=== PATIENT | female | born 1995 | race Caucasian/White ===

== ENCOUNTER 2021-05-28 08:33 | Outpatient (REF) | payer OTHER, SELFPAY ==
--- NOTE | 2021-05-28 09:19 | MHC.AU.ANR ---
Adult Audiological Evaluation Date of Visit: 05/28/21 Reason for Appointment: Audiological evaluation to monitor the status of Ms. Heath's hearing loss. She states that she has has hearing loss in the left ear since high school and has used a hearing aid in the left ear for the past ~8 years. She notes that the hearing aid was recently lost in a move and she is interested in pursuing a new one. She notes that she had PE tubes in high school. Upon getting her second set, they believe the previous tube had fallen into the middle-ear space and believe this is the cause of her hearing loss. Ms. Heath denies any concerns for her right ear at this time. She notes that she's had difficulties following conversations now that she doesn't have a hearing aid. 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 Does patient feel they have a hearing loss?: Yes If Yes, Which Ear?: Left Ear When Was Hearing Difficulty First Noticed?: ~8-10 years ago Has hearing been tested previously?: Yes Previous Hearing Test Results: [facility], records not available for review at this time. Hearing Handicap Inventory: HHIE SCORE: 26 Based on HHIE score, patient has: Severe perceived hearing handicap Ear History: Family History of Hearing Loss?: Yes: Grandparents Ear Infections in Childhood: Both Ears Previous Ear Surgery: Both ears, two sets of PE tubes in high school Bothersome Tinnitus/Ringing/Noises in Ears: Both Ears Blocked/Full Sensation in Ear(s): Both Ears Medical History: Medical History: Blood Disorders, Headache Medical History (Other): Hernia repair, tonsillectomy Allergies: Amoxicillin, penicillin, deena Medication List: Ibuprofen PRN, Zofran 25 mg daily, Zyrtec daily Otoscopy: Right Ear: Occluding cerumen removed successfully with a lighted curette Left Ear: Partially occluding cerumen, removed with lighted curette, still some deep Tympanometry: Tympanometry performed due to: History of middle ear dysfunction Right Ear: Normal Middle Ear System (Type A) Left Ear: Reduced Middle Ear Compliance (Type As) Hearing Evaluation: Transducer(s) Used: Insert Earphones, Bone Conduction Method: Conventional Audiometry Stimuli Used: Pure Tones Right Ear: Description of Hearing: Normal hearing from 250-8000 Hz. Left Ear: Description of Hearing: Mild conductive hearing loss from 250-1500 Hz, rising to normal hearing from 7247-5063 Hz. Air-bone gaps of 10-25 dBHL from 500-1500 Hz. Speech Recognition Threshold (SRT): Method Used: Monitored Live Voice Stimuli Used: Spondee Words Right Ear: 20 dBHL Left Ear: 25 dBHL Word Discrimination: Method: Recorded Lists Word Lists Used: NU-6 Right Ear: 100% at 60 dBHL Left Ear: 96% at 65 dBHL Recommendations: Audiological re-evaluation in one year. Hearing use in the left ear is recommended. Discussed hearing aid options with Ms. Heath. She is intersted in an Oticon More miniRITE-R hearing aid for the left ear. She will be contacting he [place] [employer] to determine her eligibility. Diagnosis: Primary Diagnosis: H90.12 ConductiveHL, Unilateral Left Ear, W/Unrestricted Contralateral Secondary Diagnosis: H69.92 Unspecified Eustachian Tube Dysfunction, Left Ear Services Performed: Services Performed: Comprehensive Audiological Evaluation (CPT 65413) Tympanometry (CPT 34768) Signature: Provider: Tina Yang, CCC-A
--- NOTE | 2021-05-28 10:14 | MHC.AU.HAS ---
Hearing Aid Evaluation Date of Visit: 05/28/21 Historical Information: Description of Hearing: Mild conductive hearing loss from 250-1500 Hz and rising to normal hearing 6415-0531 Hz in the left ear. Normal hearing 250-8000 Hz in the right ear. Current personal amplification information, if applicable: Left Oticon SUMI or slim tube BTE obtained ~8 years ago, lost recently Summary: Ms. Heath is interested in pursuing a new hearing aid for the left ear. Based on her hearing loss and perceived severe hearing handicap, hearing aid use in the left ear is recommended to help facilitate improved communication. Discussed options. Would like to try an Oticon rechargeable SUMI hearing aid. Hearing Aid Prescription: Based on the individual?s shared listening needs, communication environments, dexterity, desire for connectivity, and personal preferences, the following prescription for amplification has been made: Left ear: Left ear prescription to be same as Right Hearing Aid above: Certified Mortician: Oticon Model: More miniRITE-R Battery Size: Rechargeable Color: 79- [place] Clarifier: size 1 85 gain Plan of Care: Medical Clearance to be requested from PCP/ENT. Ms. Heath will contact [facility] to see if she qualifies for services. If she doesn't, welcomed to return to talk about a private pay purchase and determine technology level. Primary Diagnosis: H90.12 ConductiveHL, Unilateral Left Ear, W/Unrestricted Contralateral Secondary Diagnosis: H69.92 Unspecified Eustachian Tube Dysfunction, Left Ear Signature: Provider: Cyn Ramirez, Tina, CCC-A
--- NOTE | 2021-05-28 10:16 | MHC.AU.MED ---
Medical Clearance for Hearing Instrumentation Date: 05/28/21 Patient Name: Cecilia Heath Date of : 1995 Primary Care Provider: Referring Provider: Dara Christopher NP We have seen your patient on 05/28/21 and have determined that they are a candidate for amplification (See accompanying report). Specifically, they would benefit from: Hearing aid use in the left ear There is a statute that addresses Medical Evaluation Requirements prior to fitting a patient with a hearing aid. According to [place] statute 265 CMR:6.03(1), (a) General. Except as provided in 265 CMR 6.03(1)(b), a account manager employee benefits shall not sell a hearing aid unless the prospective user has presented to the account manager employee benefits a written statement signed by a licensed physician that states that the patient's hearing loss has been medically evaluated and the patient may be considered a candidate for a hearing aid. The medical evaluation must have taken place within the preceding six months. Please note: Due to the [place] Statute referenced above, we cannot accept a signature other than that of a licensed physician. QUALITY ENGINEERING MANAGER and PA signatures cannot be accepted. I am in agreement with the above recommendation. There is no medical contraindication for hearing instrumentation. Physician Signature Date Physician Name (Printed)
== END 2021-05-28 08:34 | disposition home or self-care (01) ==
LOC: HO.SH 08:33
PROVIDERS: Visit Provider Nurse Practitioner Family
DX: H90.12 Conductive hearing loss, unilateral, left ear, with unrestricted hearing on the contralateral side (principal); H69.92 Unspecified Eustachian tube disorder, left ear
CPT/HCPCS: 92557; 92567